=== PATIENT | male | born 1990 | race Two or more races ===

== ENCOUNTER 2016-08-28 17:52 | Emergency (ER) | payer OTHER ==
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
[2016-08-28 18:12] VITALS: BP 177/101; PULSE 118; RESP 18; TEMP 97.7; O2SAT 95
== END 2016-08-28 19:00 | disposition home or self-care (01) ==
LOC: CED 17:52
DX: S62.115A Nondisplaced fracture of triquetrum [cuneiform] bone, left wrist, initial encounter for closed fracture (principal); W11.XXXA Fall on and from ladder, initial encounter; Y99.0 Civilian activity done for income or pay
CPT/HCPCS: 73110-PO

== ENCOUNTER 2017-08-17 05:33 | Emergency (ER) | payer OTHER ==
--- NOTE | 2017-08-17 05:51 | CPEKG ---
Heart Rate: 95 RR Interval: 632 P-R Interval: 156 QRSD Interval: 88 QT Interval: 372 QTC Interval: 468 P [place]: 55 QRS [place]: 55 T Wave [place]: 35 EKG Severity - BORDERLINE ECG - EKG Impression: SINUS RHYTHM EKG Impression: PROBABLE LEFT ATRIAL ABNORMALITY Electronically Signed By: Bethel Berg 17-Aug-2017 06:53:44
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
[2017-08-17] MEDS ORDERED: LORazepam 1 MG TAB SL ONE (06:05)
[2017-08-17 06:26] LABS: PLATELET COUNT 194 10^3/uL (150-400)
[2017-08-17 09:34] VITALS: BP 123/70
== END 2017-08-17 09:20 | disposition home or self-care (01) ==
LOC: CED 05:33
DX: R07.89 Other chest pain (principal)
CPT/HCPCS: 71046-PO; 84484-PO; 85025-PO

== ENCOUNTER 2017-09-27 15:44 | Emergency (ER) | payer SELFPAY ==
[2017-09-27] MEDS ORDERED: IBUPROFEN 600 MG TAB PO ONE (16:11)
[2017-09-27] MEDS ORDERED: IPRATROPIUM/ALBUTEROL 3 ML DEYVIAL IH ONE (16:11)
--- NOTE | 2017-09-27 16:16 | EDPHY ---
H & P Stated Complaint: L wrist arm pain to armpit, numbness, tingling Time Seen by Provider: 09/27/17 15:56 HPI/ROS: CHIEF COMPLAINT: Left upper chest pain and left wrist pain HISTORY OF PRESENT ILLNESS: This is a 27-year-old male who was seen with similar symptoms at the end of July. He presents today complaining of a pressure sensation around his left wrist that "feels like handcuffs". He also reports a squeezing sensation in the left upper chest just anterior to the axilla. It is localized only in that area. The pain is not pleuritic. No chest trauma. Apparently he has had what were thought to be panic attacks in the past with these symptoms. He also reports a recent cough, nasal congestion , and some itchiness in his throat. He consulted a pharmacist and was advised to take Benadryl for symptoms of allergy. He took 3 Benadryl 45 min prior to arrival. He has also been drinking beer since noon today and has had 2-3 beers per his report. He has not taken any pain medications. He smokes 1 pack per day and has been smoking for 13 years. He reports increased stress at work. REVIEW OF SYSTEMS: A ten point review of systems was performed and is negative with the exception of the items mentioned in the HPI. Past medical history: Possible panic attacks Past surgical history: Negative Family history: No known coronary artery disease or early Social history: He smokes 1 pack of cigarettes a day. He drinks 2 six packs on average per week. Denies use of illicit drugs. Employed. General Appearance: Alert. Vital signs reviewed. 131/88. Eyes: Pupils equal and round, no conjunctival injection, no discharge. Anicteric. ENT, Mouth: Mucous membranes are moist, no oropharyngeal erythema or edema. Neck: No lymphadenopathy, supple. Trachea midline. Respiratory: Lungs with scattered wheezes. Cardiovascular: Regular rate and rhythm; no murmur, rub, or gallop. Not tachycardic at the time of my exam. Thorax: Point tenderness to palpation just anterior to his axilla in the left upper chest. No palpable mass and no skin changes. Gastrointestinal: Abdomen is soft and nontender, no masses or organomegaly, bowel sounds normal. Skin: Warm and dry, no rashes on exposed skin, normal color. Back: Nontender to palpation over the thoracolumbar spine. Extremities: No lower extremity edema, no calf tenderness or swelling. Neurological: Alert and oriented. Moving all four extremities easily and equally. Normal strength in both upper extremities. Normal sensation both upper extremities. Psychiatric: Normal affect. Talkative. - Personal History Current Tetanus/Diphtheria Vaccine: Yes - Medical/Surgical History Hx Asthma: No Hx Chronic Respiratory Disease: No Hx Diabetes: No Hx Cardiac Disease: No Hx Renal Disease: No Hx Cirrhosis: No Hx Alcoholism: No Hx HIV/AIDS: No Hx Splenectomy or Spleen Trauma: No Other PMH: Denies. Occassional drug use. - Social History Smoking Status: Current every day smoker Constitutional: Initial Vital Signs Temperature (C) 37 C 09/27/17 15:47 Heart Rate 106 H 09/27/17 15:47 Respiratory Rate 20 09/27/17 15:47 Blood Pressure 131/88 H 09/27/17 15:47 O2 Sat (%) 98 09/27/17 15:47 Allergies/Adverse Reactions: No Known Allergies Allergy (Verified 09/27/17 15:51) Home Medications: Medication Instructions Recorded Albuterol [Proventil Inhaler HFA 1 - 2 puffs IH Q4 #1 mdi 09/27/17 (*)] Medical Decision Making - Diagnostics EKG Interpretation: 12 lead EKG is interpreted in Trace master View by emergency department physician. Compared to the EKG done in July. ED Course/Re-evaluation: 27-year-old male with left upper chest point tenderness. I doubt that this is cardiac in origin. I do not suspect PE. He has some wheezing but does not feel short of breath. He has a significant smoking history and continues to smoke 1 pack per day. He also has some symptoms of seasonal allergies. He was not tachycardic or hyperventilating at the time of my exam and although he seems anxious I do not think that his presentation is typical of panic attack. Re-evaluated at 5:00 p.m.. He continues with wheezing after DuoNeb but states that his breathing feels better. He still has point tenderness in the upper chest on the left. Chest x-ray, as interpreted by me, is without pneumothorax or active pulmonary disease. He now feels sleepy, likely due to the 3 Benadryl that he took. I reassured him that I do not think he is having a heart attack. I do not really think he is having a panic attack either. I do think that he might have some chronic bronchitis and I am prescribing an albuterol inhaler for him to use. I discussed the appropriate dosing of Benadryl with him. I am recommending [id number] Tylenol and/or ibuprofen for his chest pain which I think is musculoskeletal. Differential Diagnosis: Chest pain including but not limited to pneumothorax, myocardial ischemia, pulmonary embolus, chest wall pain, pleural inflammation and pulmonary infectious causes. - Data Points Medications Given: Discontinued Medications Albuterol/Ipratropium (Duoneb) 3 ml IH EDNOW ONE Stop: 09/27/17 16:12 Last Admin: 09/27/17 16:16 Dose: 3 ml Ibuprofen (Motrin) 600 mg PO EDNOW ONE Stop: 09/27/17 16:12 Last Admin: 09/27/17 16:16 Dose: 600 mg Departure - Departure Disposition: Home, Routine, Self-Care Clinical Impression: Bronchitis Chest pain Qualifiers: Chest pain type: other chest pain Qualified Code(s): R07.89 - Other chest pain Condition: Good Instructions: Chest Pain (ED), How to Stop Smoking (ED), Acute Bronchitis (ED) Additional Instructions: When I listen to your lungs I hear wheezing. I think that this is due to the fact that you smoke. I am prescribing an inhaler that I would like you to use 4 times daily. This would be a good time to stop smoking. I am referring you to a primary care physician. I do not think that your chest pain is from a panic attack or heart attack. I think that it is musculoskeletal in origin. I am recommending that you take ibuprofen 400 mg every 6-8 hours while awake. Take this with food. If you have new or concerning symptoms, such as fever, worsening cough, shortness of breath, change in your pain--you should be re-evaluated. Referrals: Tate Montez DO [Doctor of Osteopathy] - As per Instructions Prescriptions: Albuterol [Proventil Inhaler HFA (*)] 1 - 2 puffs IH Q4 #1 mdi
--- NOTE | 2017-09-27 16:19 | CPEKG ---
Heart Rate: 96 RR Interval: 625 P-R Interval: 136 QRSD Interval: 88 QT Interval: 360 QTC Interval: 455 P [place]: 63 QRS [place]: 57 T Wave [place]: 34 EKG Severity - NORMAL ECG - EKG Impression: SINUS RHYTHM Electronically Signed By: Leslie Mesa 27-Sep-2017 16:21:14
[2017-09-27 17:26] VITALS: BP 118/70
== END 2017-09-27 17:22 | disposition home or self-care (01) ==
LOC: CED 15:44
DX: J40 Bronchitis, not specified as acute or chronic (principal); R07.89 Other chest pain; F17.210 Nicotine dependence, cigarettes, uncomplicated
CPT/HCPCS: 71046-PO